=== PATIENT | male | born 1975 | race Two or more races ===

== ENCOUNTER 2020-06-05 20:32 | Emergency (ER) | payer MEDICAID, OTHER ==
[~2020-06-05] VITALS: Ht 165.1 cm; Wt 81.8 kg
[2020-06-05 20:38] VITALS: BP 148/77
[2020-06-05] MEDS ORDERED: NAPR-1024 PO (20:50)
== END 2020-06-05 22:08 | disposition home or self-care (01) ==
LOC: EMS 20:32
DX: R20.2 Paresthesia of skin (principal)
CPT/HCPCS: Z7502

== ENCOUNTER 2023-06-22 02:18 | Emergency (ER) | payer OTHER ==
[~2023-06-22] VITALS: Ht 165.1 cm; Wt 65.0 kg
[~2023-06-22 02:18] MED LIST: NAPR-1024 PO
[2023-06-22 02:19] VITALS: TEMP 98.7
[2023-06-22] MEDS ORDERED: KETOROLAC TROMETHAMINE 30 MG/ML VIAL IVP ONE (03:00)
[2023-06-22] MEDS ORDERED: 0.9% SODIUM CHLORIDE 10 ML SYRINGE IVP PRN (03:00)
[2023-06-22 03:28] LABS: BASOPHILS % (AUTO) 0.6 % (0.0-2.0); EOSINOPHILS % (AUTO) 0.5 % (1.0-6.0); HEMATOCRIT 39.3 % (41-53); HEMOGLOBIN 13.5 g/dL (13.5-17.5); LYMPHOCYTES # (AUTO) 1.5 K/uL (1.0-4.8); LYMPHOCYTES % (AUTO) 15.1 % (22.0-44.0); MEAN CORPUSCULAR HEMOGLOBIN 32.1 pg (26.0-34.0); MEAN CORPUSCULAR HGB CONC 34.3 G/dL (31.0-37.0); MEAN CORPUSCULAR VOLUME 94 fL (80-100); MONOCYTES # (AUTO) 0.7 K/uL (0.1-1.0); MONOCYTES % (AUTO) 7.5 % (2.0-9.0); NEUTROPHILS # (AUTO) 7.5 K/uL (1.8-7.7); NEUTROPHILS % (AUTO) 76.3 % (40.0-70.0); PLATELET COUNT (AUTO) 202 K/uL (150-450); RED CELL DISTRIBUTION WIDTH 13.3 % (11.5-14.5)
[2023-06-22 03:40] LABS: LACTIC ACID 1.4 mmol/L (0.4-2.0)
[2023-06-22 03:44] LABS: ANION GAP 10 mmol/L (8-16); CALCIUM, TOTAL 7.5 mg/dL (8.8-10.5); CARBON DIOXIDE 25 mmol/L (22-29); CHLORIDE 101 mmol/L (98-107); CREATININE 0.82 mg/dL (0.60-1.30); GLOMERULAR FILTR. RATE CALC > 60 mL/min (>60); GLUCOSE,RANDOM 134 mg/dL (70-110); POTASSIUM 3.4 mmol/L (3.5-5.1); SODIUM SERUM 136 mmol/L (136-145)
[2023-06-22 03:49] LABS: ALANINE AMINOTRANSFERASE 22 U/L (12-78); ALBUMIN 2.9 g/dL (3.4-5.0); ALKALINE PHOSPHATASE 71 U/L (46-116); ASPARTATE AMINOTRANSFERASE 19 U/L (15-37); BILIRUBIN,TOTAL 0.5 mg/dL (0.1-1.0); TOTAL PROTEIN, SERUM 6.3 g/dL (6.4-8.2); URIC ACID 3.8 mg/dL (2.6-7.2)
[2023-06-22] MEDS ORDERED: POVIDONE-IODINE 10% 120 ML SOLUTION TP ONE (04:30)
[2023-06-22] MEDS ORDERED: SULF-261 PO (04:49)
[2023-06-22] MEDS ORDERED: CEPH-558 PO (04:49)
[2023-06-22] MEDS ORDERED: IBUP-1492 PO (04:49)
[2023-06-22] MEDS ORDERED: CefTRIAXone 1 GM/DEXTROSE 50 ML IV ONE (05:00)
[2023-06-22] MEDS ORDERED: SULFAMETHOX/TRIMETH DS 800-160 MG/TABLET PO ONE (05:00)
[2023-06-22 05:51] VITALS: BP 132/74; PULSE 86; RESP 17
== END 2023-06-22 05:45 | disposition home or self-care (01) ==
LOC: EMS 02:19
DX: M70.42 Prepatellar bursitis, left knee (principal); L03.116 Cellulitis of left lower limb; F17.210 Nicotine dependence, cigarettes, uncomplicated; Z88.5 Allergy status to narcotic agent; Y93.89 Activity, other specified
CPT/HCPCS: 99285; 96365; 73700; 96375; 80053; 83605; 84550; 85025; 87040; 36415; J0696; J1885